=== PATIENT | female | born 1960 | race Caucasian/White ===

== ENCOUNTER → 2020-05-26 08:23 | Outpatient (CLI) | payer BC, SELFPAY ==
--- NOTE | ~2020-05-26 | XR_ITS ---
EXAMINATION: XR ankle LT 2V, XR foot LT 2V DATE: 05/26/2020 11:19 INDICATION: Left foot and ankle pain TECHNIQUE: 1. Anteroposterior and lateral view of the left ankle were obtained. 2. Dorsoplantar and lateral views of the left foot were obtained. COMPARISON: None. FINDINGS: Alignment of the foot and ankle is normal. No fracture or osteochondral lesion. Moderate osteoarthrit is at the first metatarsophalangeal joint. Mild osteoarthritis at many of the remaining profiled join ts in the mid and forefoot. Moderate-sized Achilles and plantar calcaneal spurs. There is prominent t hickening of the distal Achilles tendon with small irregular heterotopic ossicle within the tendon ce ntered approximately 2.6 cm from the calcaneal insertion as well as small heterotopic ossicle near th e tip of the medial malleolus, both likely sequela of prior chronic trauma. There are additional enth esophytes along the dorsal aspect of the navicula and cuneiforms and at the tip of the lateral malleo cecelia. Increased density anterior to the tibiotalar joint line suspicious for ankle joint effusion. The soft tissues are otherwise unremarkable. IMPRESSION: 1. Degenerative changes in the left foot including mild to moderate polyarticular osteoarthritis and prominent enthesopathic changes. 2. Small heterotopic ossicle within the thickened distal Achilles tendon suggesting tendinosis and se quela chronic trauma/tear. Reviewed, dictated and finalized at location A. IMPRESSION: 1. Degenerative changes in the left foot including mild to moderate polyarticul ar osteoarthritis and prominent enthesopathic changes. 2. Small heterotopic ossicle within the thickened distal Achilles tendon sugges ting tendinosis and sequela chronic trauma/tear.
--- NOTE | ~2020-05-26 | XR_ITS ---
XR foot RT 2V DATE: 05/26/2020 11:19 INDICATION: Multiple joint pain TECHNIQUE: AP and lateral views COMPARISON: None FINDINGS: There is prominent plantar and posterior calcaneal enthesopathy. There is moderately prominent osteoarthritis at the first metatarsophalangeal joint. There is osteoarthritic change at the tarsometatarsal joints. No fracture, dislocation, periosteal reaction or bone destruction is evident. IMPRESSION: Polyarticular osteoarthritic Prominent plantar and posterior calcaneal enthesopathy Reviewed, dictated and finalized at location A.
--- NOTE | ~2020-05-26 | XR_ITS ---
XR wrist RT 2V, XR hand RT 2V 05/26/2020 11:19 Indication: Multiple joint pain Procedure: 2 views right wrist and 2 views right hand Comparison: No prior studies for comparison. Findings: There are degenerative changes of the radiocarpal, triscaphe, first CMC, MCP and IP joints as well as the interphalangeal joints of the second-fifth digits and the MCP joints of the second, th ird and fourth digits. There is an old ulnar styloid avulsion fracture. No acute fracture or traumati c malalignment. No ostial lysis. No erosive change. 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 Reviewed, dictated and finalized at location B. 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
--- NOTE | ~2020-05-26 | XR_ITS ---
XR hip BI wo pelvis 05/26/2020 11:19 Indication: Polyarticular joint pain. Procedure: 2 views of each hip Comparison: No prior studies for comparison. Findings: Mild bilateral symmetric osteoarthritis of the hips. No fracture, subluxation or dislocatio n. No significant soft tissue abnormality. No radiopaque foreign bodies. Impression: 1: Bilateral symmetric osteoarthritis of the hips. Reviewed, dictated and finalized at location B. Impression: 1: Bilateral symmetric osteoarthritis of the hips.
--- NOTE | ~2020-05-26 | XR_ITS ---
XR ankle RT 2V DATE: 05/26/2020 11:19 INDICATION: Right ankle pain TECHNIQUE: 2 views COMPARISON: None FINDINGS: Prominent plantar and posterior calcaneal enthesopathy. No fracture or dislocation of the ankle or disruption of the ankle mortise is detected. IMPRESSION: Calcaneal enthesopathy Reviewed, dictated and finalized at location A. IMPRESSION: Calcaneal enthesopathy
--- NOTE | ~2020-05-26 | XR_ITS ---
XR elbow RT 2V 05/26/2020 11:19 Indication: Right elbow pain Procedure: 2 views right elbow Comparison: No prior studies for comparison. Findings: There is mild osteoarthritis of the right elbow. No significant joint effusion. No fracture or traumatic malalignment. Small enthesophyte at the proximal aspect of the ulna. Impression: 1: Mild osteoarthritis of the right elbow. Reviewed, dictated and finalized at location B. Impression: 1: Mild osteoarthritis of the right elbow.
--- NOTE | ~2020-05-26 | XR_ITS ---
XR shoulder RT min 2V, XR shoulder LT min 2V 05/26/2020 11:19 Indication: Polyarticular joint pain Procedure: 3 views of the shoulders Comparison: No prior studies for comparison. Findings: There is mild osteoarthritis of the acromioclavicular joints. Osteopenia. Glenohumeral join ts within normal limits in anatomic alignment. Visualized lung parenchyma unremarkable. No erosive ch anges. Impression: 1: Mild symmetric osteoarthritis of the acromioclavicular joints. Reviewed, dictated and finalized at location B. Impression: 1: Mild symmetric osteoarthritis of the acromioclavicular joints. Impression: 1: Mild symmetric osteoarthritis of the acromioclavicular joints.
--- NOTE | ~2020-05-26 | XR_ITS ---
XR knee RT 2V, XR knee LT 2V 05/26/2020 11:19 Indication: Polyarticular joint pain Procedure: 2 views of each knee Comparison: No prior studies for comparison. Findings: There is mild tricompartment osteoarthritis of the right knee. There is mild-moderate trico mpartment osteoarthritis of the left knee, most advanced in the patellofemoral joint. No fracture or traumatic malalignment. No significant joint effusion. No focal soft tissue abnormality. No foreign b odies. Impression: 1: Bilateral tricompartment osteoarthritis of the knees, left greater than right. Reviewed, dictated and finalized at location B. Impression: 1: Bilateral tricompartment osteoarthritis of the knees, left greater than stacy araujo Impression: 1: Bilateral tricompartment osteoarthritis of the knees, left greater than stacy araujo
--- NOTE | ~2020-05-26 | XR_ITS ---
XR elbow LT 2V 05/26/2020 11:19 Indication: Joint pain Procedure: 2 views left elbow Comparison: No prior studies for comparison. Findings: No fracture, subluxation or dislocation. Mild osteoarthritis of the elbow. There is entheso phyte at the at the proximal aspect of the ulna. No significant joint effusion. No focal soft tissue abnormality. Impression: 1: Mild osteoarthritis of the left elbow. Reviewed, dictated and finalized at location B. Impression: 1: Mild osteoarthritis of the left elbow.
--- NOTE | ~2020-05-26 | XR_ITS ---
XR wrist LT 2V, XR hand LT 2V 05/26/2020 11:19 Indication: Polyarticular joint pain Procedure: 2 views left wrist and 2 views left hand Comparison: No prior studies for comparison. Findings: There are mild degenerative changes of the radiocarpal and first CMC joint. There is osteoa rthritis of the first MCP and IP joints. There is mild polyarticular osteoarthritis of the interphala ngeal joints as well as the second, third and fourth MCP joints. No fracture or traumatic malalignmen t. No erosive changes. No focal soft tissue abnormality. Impression: 1: Mild polyarticular osteoarthritis of the left hand and wrist. Reviewed, dictated and finalized at location B. Impression: 1: Mild polyarticular osteoarthritis of the left hand and wrist. Impression: 1: Mild polyarticular osteoarthritis of the left hand and wrist.
== END ==
PROVIDERS: Visit Provider Internal Medicine Rheumatology
DX: M19.071 Primary osteoarthritis, right ankle and foot (principal); M19.072 Primary osteoarthritis, left ankle and foot; M77.31 Calcaneal spur, right foot; M16.0 Bilateral primary osteoarthritis of hip; M19.041 Primary osteoarthritis, right hand; M19.042 Primary osteoarthritis, left hand; M19.031 Primary osteoarthritis, right wrist; M19.032 Primary osteoarthritis, left wrist; M19.011 Primary osteoarthritis, right shoulder; M19.012 Primary osteoarthritis, left shoulder; M17.0 Bilateral primary osteoarthritis of knee; M19.021 Primary osteoarthritis, right elbow; M19.022 Primary osteoarthritis, left elbow
CPT/HCPCS: 73030; 73070; 73100; 73120; 73521; 73560; 73600; 73620

== ENCOUNTER → 2020-10-14 15:11 | Outpatient (CLI) | payer BC, SELFPAY ==
--- NOTE | ~2020-10-14 | MM_ITS ---
EXAMINATION: MM screening [facility] BI w karo HISTORY: Screening mammogram TECHNIQUE: Craniocaudal and mediolateral oblique 3-D tomosynthesis images were obtained and synthetic 2-D images were generated. CAD analysis was submitted and interpreted. COMPARISON: 10/01/2019, 09/01/2018, 09/24/2014 bilateral digital screening mammogram examinations BREAST PARENCHYMAL COMPOSITION: There are scattered areas of fibroglandular density. FINDINGS: There is no evidence of suspicious mass, calcification, or architectural distortion to sugg est malignancy in either breast. There has been no suspicious interval change. IMPRESSION: 1. No mammographic evidence of malignancy. 2. Recommend routine screening mammography in one year. BI-RADS Category 1: Negative Reviewed, dictated and finalized at location A. RD CUTTER
== END ==
PROVIDERS: Visit Provider Obstetrics & Gynecology
DX: Z12.31 Encounter for screening mammogram for malignant neoplasm of breast (principal)
CPT/HCPCS: 77063; 77067

== ENCOUNTER 2021-06-07 14:28 | Outpatient (CLI) | payer BC, SELFPAY | END 2021-06-07 14:29 | disposition home or self-care (01) | LOC: ANHAUDIO 14:29 | PROVIDERS: PCP Internal Medicine; Visit Provider Otolaryngology | DX: H93.13 Tinnitus, bilateral (principal); H90.3 Sensorineural hearing loss, bilateral | CPT/HCPCS: 92557; 92567 ==

== ENCOUNTER → 2021-10-18 14:51 | Outpatient (CLI) | payer BC, SELFPAY ==
--- NOTE | ~2021-10-18 | MM_ITS ---
EXAMINATION: MM screening [facility] BI w karo HISTORY: Screening TECHNIQUE: Craniocaudal and mediolateral oblique 3-D tomosynthesis images were obtained and synthetic 2-D images were generated. CAD analysis was submitted and interpreted. COMPARISON: Comparison to multiple prior studies sequentially, with oldest reviewed study dated 09/13. BREAST PARENCHYMAL COMPOSITION: There are scattered areas of fibroglandular density. FINDINGS: There is no evidence of suspicious mass, calcification, or architectural distortion to sugg est malignancy in either breast. There has been no suspicious interval change. IMPRESSION: 1. No mammographic evidence of malignancy. 2. Recommend routine screening mammography in one year. BI-RADS Category 1: Negative Reviewed, dictated and finalized at location A. GER SHIFT
== END ==
PROVIDERS: PCP Internal Medicine; Visit Provider Obstetrics & Gynecology
DX: Z12.31 Encounter for screening mammogram for malignant neoplasm of breast (principal)
CPT/HCPCS: 77063; 77067

== ENCOUNTER → 2021-10-21 09:35 | Outpatient (CLI) | payer BC, SELFPAY ==
--- NOTE | ~2021-10-21 | MR_ITS ---
EXAMINATION: MRA brain wo con DATE: 10/21/2021 10:23 INDICATION: Headache. TECHNIQUE: Magnetic resonance angiography (MRA) of the brain was performed without intravenous contra st with T1-weighted SPGR by the 3D [id number] technique. Maximum intensity projection 3D-reconstr uctions were obtained. COMPARISON: Brain MRI 10/21/2021 FINDINGS: The vertebral arteries are codominant. There is no significant stenosis of basilar artery or the post erior cerebral arteries. There is no significant stenosis of the intracranial internal carotid arteri es or anterior or middle cerebral arteries. Anterior communicating artery is normal. The posterior co mmunicating arteries are normal. There is no aneurysm. IMPRESSION: 1. No aneurysm or significant intracranial arterial stenosis. Reviewed, dictated and finalized at location A. O EXCAVATION OPERATOR
--- NOTE | ~2021-10-21 | MR_ITS ---
EXAMINATION: MR brain/brain stem wo con DATE: 10/21/2021 10:24 INDICATION: Headache. TECHNIQUE: Magnetic resonance imaging (MRI) of the brain and brainstem was performed without intraven ous contrast. Sequences included sagittal and axial T1-weighted FSE, axial diffusion-weighted FS EPI, axial T2*-weighted GRE, axial T2-weighted FLAIR Propeller, and axial T2-weighted Propeller. Apparent diffusion coefficient (ADC) maps were created. COMPARISON: None. FINDINGS: There is no intracranial hemorrhage, acute infarction, or abnormal intracranial mass lesion . The ventricles are normal in size. The paranasal sinuses are clear. The orbits are normal. The mast oid air cells are normal. IMPRESSION: 1. Normal brain. Reviewed, dictated and finalized at location A. STACK PHP DEVELOPER IMPRESSION: 1. Normal brain.
== END ==
PROVIDERS: PCP Internal Medicine; Visit Provider Internal Medicine Rheumatology
DX: R51.9 Headache, unspecified (principal); M54.2 Cervicalgia; M54.50 Low back pain, unspecified
CPT/HCPCS: 70544; 70551

== ENCOUNTER → 2021-11-04 13:12 | Outpatient (CLI) | payer BC, SELFPAY ==
--- NOTE | ~2021-11-04 | MR_ITS ---
EXAMINATION: MR lumbar spine wo con EXAM DATE: 11/04/2021 14:31 INDICATION: low back pain. TECHNIQUE: Multi-sequential, multiplanar MR images of the lumbar spine were obtained without contrast . Sagittal T1, T2, T2 fat saturation images. Axial T2 weighted images. There is no prior study for comparison. FINDINGS: There is moderate loss of the disc height at L2-3 and L4-5, mild at L3-4. The conus medulla ris terminates at the L1 level and has normal signal intensity and morphology. There are no suspicio us marrow signal abnormalities. Paraspinal soft tissue is unremarkable. The vertebral bodies are alig wesley in the AP dimension. Level by level evaluation: T12-L1: Mild disc bulge asymmetric to the left. Facet arthropathy: Mild. Neural foraminal stenosis: No stenosis. Central canal stenosis: Mild. L1-L2: Disc does not extend beyond the endplate margin. Facet arthropathy: Mild. Neural foraminal stenosis: No stenosis. Central canal stenosis: No stenosis. L2-L3: There is a moderate diffuse disc bulge. Facet arthropathy: Mild to moderate. Neural foraminal stenosis: Mild right. Central canal stenosis: Mild. L3-L4: There is a moderate diffuse disc bulge. Facet arthropathy: Mild to moderate. Neural foraminal stenosis: Mild to moderate right. Central canal stenosis: Mild. L4-L5: There is a moderate diffuse disc bulge. Facet arthropathy: Moderate left, mild to moderate right. Neural foraminal stenosis: Moderate left, mild to moderate right. Central canal stenosis: Mild to moderate. L5-S1: There is a mild diffuse disc bulge. Facet arthropathy: Mild. Neural foraminal stenosis: No stenosis. Central canal stenosis: No stenosis. IMPRESSION: 1. L4-5 moderate disc disease and left neural foraminal stenosis. 2. Less spondylosis other levels. Reviewed, dictated and finalized at location B. DESK TEAM LEADER
--- NOTE | ~2021-11-04 | MR_ITS ---
EXAMINATION: MR cervical spine wo con EXAM DATE: 11/04/2021 14:11 INDICATION: Neck pain. Right arm pain. TECHNIQUE: Multi-sequential, multiplanar MR images of the cervical spine were obtained without contra st. Axial T2, axial T2 MERGE sequence. Sagittal T1, T2, T2 fat saturation images also obtained. Th ere is no prior study for comparison. FINDINGS: There is moderate to severe loss of the disc height at C4-5 and 5-6 with 2 mm retrolisthes is C4 on C5 and 3 mm retrolisthesis C5 on C6. Otherwise mild to moderate loss of cervical disc height . The spinal cord signal intensity and intrinsic morphology is normal. Cervicomedullary junction is n ormal in appearance. There are no suspicious marrow signal abnormalities. Paraspinal soft tissue is u nremarkable. Level by level evaluation: C2-C3: Disc does not extend beyond the endplate margin. Uncovertebral joint arthropathy: None. Facet joint arthropathy: Mild bilateral. Neural foraminal stenosis: No stenosis. Central canal stenosis: No stenosis. C3-C4: Disc does not extend beyond the endplate margin. Uncovertebral joint arthropathy: None. Facet joint arthropathy: Mild bilateral. Neural foraminal stenosis: No stenosis. Central canal stenosis: No stenosis. C4-C5: Mild disc bulge with moderate-sized superimposed protrusion projecting 4 mm into the spinal ca nal, indenting the anterior aspect of the spinal cord and narrowing the canal to 5-6 mm in mid sagitt al AP diameter. There is no cord edema, no acute cord compression. Uncovertebral joint arthropathy: Mild. Facet joint arthropathy: Mild to moderate. Neural foraminal stenosis: No stenosis. Central canal stenosis: Mild to moderate. C5-C6: There is a mild to moderate diffuse disc bulge. Uncovertebral joint arthropathy: Moderate bilateral, right greater than left. Facet joint arthropathy: Mild to moderate bilateral. Neural foraminal stenosis: Moderate right, mild to moderate left. Central canal stenosis: Mild. C6-C7: Disc does not extend beyond the endplate margin. Uncovertebral joint arthropathy: Mild. Facet joint arthropathy: Mild. Neural foraminal stenosis: No stenosis. Central canal stenosis: No stenosis. C7-T1: Disc does not extend beyond the endplate margin. Uncovertebral joint arthropathy: Mild left. Facet joint arthropathy: Moderate right, mild left. Neural foraminal stenosis: No stenosis. Central canal stenosis: No stenosis. IMPRESSION: 1. C4-5 bulge and superimposed central protrusion indenting the spinal cord and narrowing spinal can al to 5-6 mm. No cord edema, no acute cord compression. 2. C5-6 moderate right neural foraminal stenosis. 3. Less spondylosis other levels. Reviewed, dictated and finalized at location B. PING MACHINE OPERATOR IMPRESSION: 1. C4-5 bulge and superimposed central protrusion indenting the spinal cord an d narrowing spinal canal to 5-6 mm. No cord edema, no acute cord compression. 2. C5-6 moderate right neural foraminal stenosis. 3. Less spondylosis other levels.
== END ==
PROVIDERS: PCP Internal Medicine; Visit Provider Internal Medicine Rheumatology
DX: R51.9 Headache, unspecified (principal); M51.36 Other intervertebral disc degeneration, lumbar region; M47.896 Other spondylosis, lumbar region
CPT/HCPCS: 72141; 72148

== ENCOUNTER → 2022-10-21 13:52 | Outpatient (CLI) | payer OTHER, SELFPAY ==
--- NOTE | ~2022-10-21 | MM_ITS ---
EXAMINATION: MM screening [facility] BI w karo HISTORY: Screening mammogram TECHNIQUE: Craniocaudal and mediolateral oblique 3-D tomosynthesis images were obtained and synthetic 2-D images were generated. CAD analysis was submitted and interpreted. COMPARISON: 10/18/2021, 10/14/2020, 10/01/2019 BREAST PARENCHYMAL COMPOSITION: There are scattered areas of fibroglandular density. FINDINGS: No suspicious mass, calcification, or architectural distortion are identified in either angelia ast to suggest malignancy. There has been no suspicious interval change. IMPRESSION: 1. No mammographic evidence of malignancy. 2. Recommend routine screening mammography in one year. BI-RADS Category 1: Negative Reviewed, dictated and finalized at location A. ORATE COMPLIANCE DIRECTOR
== END ==
PROVIDERS: PCP Internal Medicine; Visit Provider Internal Medicine
DX: Z12.31 Encounter for screening mammogram for malignant neoplasm of breast (principal)
CPT/HCPCS: 77063; 77067

== ENCOUNTER → 2023-05-11 08:14 | Outpatient (CLI) | payer OTHER, SELFPAY ==
--- NOTE | ~2023-05-11 | US_ITS ---
EXAMINATION: US pelvic complete w TV DATE: 05/11/2023 08:48 INDICATION: Pelvic pain and bloating TECHNIQUE: Multiple transabdominal and endovaginal sonographic images of the pelvis were obtained. COMPARISON: None. FINDINGS: The uterus is surgically absent. The right ovary is not visualized however no right adnexal abnormality is seen. The left ovary measures 5.3 x 2.5 x 3.8 cm. There are adjacent cysts of the lef t adnexa measuring up to 2.4 cm. There is normal vascular flow in the left ovary. There is no free fl uid in the pelvis. IMPRESSION: 1. Left adnexal cysts. Follow-up pelvic ultrasound in six months is recommended. Reviewed, dictated and finalized at location L. IMPRESSION: 1. Left adnexal cysts. Follow-up pelvic ultrasound in six months is recommended .
== END ==
PROVIDERS: PCP Family Medicine; Visit Provider Obstetrics & Gynecology
DX: N83.292 Other ovarian cyst, left side (principal)
CPT/HCPCS: 76830; 76856

== ENCOUNTER → 2023-10-09 08:13 | Outpatient (CLI) | payer OTHER, SELFPAY ==
--- NOTE | ~2023-10-09 | US_ITS ---
Pelvic ultrasound. Clinical History: Left ovarian cyst COMPARISON: 05/11/2023 Technique: Realtime transabdominal and transvaginal scanning of the pelvis was performed. Color flow Doppler and Doppler spectral analysis were performed. Findings: The uterus is nonvisualized. The right ovary is not visualized. No significant right ovarian or adnexal mass is seen. The left ovary measures 4.0 x 2.1 x 2.8 cm. 2 simple left ovarian cysts are present, larger measuring 2.2 cm in diameter, smaller measuring 1.5 cm in diameter. There is no evidence of free fluid in the cul de sac. Impression: 2 simple left ovarian cyst, as detailed above, similar to prior exam. Status post presumed prior hysterectomy and right oophorectomy. Reviewed, dictated and finalized at [facility]. LANCE WEB DESIGNER Impression: 2 simple left ovarian cyst, as detailed above, similar to prior exam. Status post presumed prior hysterectomy and right oophorectomy.
== END ==
PROVIDERS: PCP Family Medicine; Visit Provider Obstetrics & Gynecology
DX: N83.202 Unspecified ovarian cyst, left side (principal)
CPT/HCPCS: 76830; 76856

== ENCOUNTER → 2023-10-27 12:27 | Outpatient (CLI) | payer OTHER, SELFPAY ==
--- NOTE | ~2023-10-27 | MM_ITS ---
EXAMINATION: MM screening [facility] BI w karo HISTORY: Screening TECHNIQUE: Craniocaudal and mediolateral oblique 3-D tomosynthesis images were obtained and synthetic 2-D images were generated. CAD analysis was submitted and interpreted. COMPARISON: Comparison to multiple prior studies sequentially, with oldest reviewed study dated 09/13. BREAST PARENCHYMAL COMPOSITION: There are scattered areas of fibroglandular density. FINDINGS: There is no evidence of suspicious mass, calcification, or architectural distortion to sugg est malignancy in either breast. There has been no suspicious interval change. IMPRESSION: 1. No mammographic evidence of malignancy. 2. Recommend routine screening mammography in one year. BI-RADS Category 1: Negative Reviewed, dictated and finalized at location A. RVISOR MAINTENANCE
== END ==
PROVIDERS: PCP Family Medicine; Visit Provider Obstetrics & Gynecology
DX: Z12.31 Encounter for screening mammogram for malignant neoplasm of breast (principal)
CPT/HCPCS: 77063; 77067

== ENCOUNTER 2024-03-11 07:02 | Outpatient (CLI) | payer OTHER, SELFPAY ==
--- NOTE | ~2024-03-11 | XR_ITS ---
Right Knee Technique: AP, lateral, and sunrise views were obtained. Clinical History: Pain Findings: No fracture or dislocation is seen. Osseous alignment is anatomic. Mild degenerative spurri ng noted, most notably at the intercondylar notch and medial joint line. Soft tissues are unremarkabl e. No joint effusion is seen. Impression: Mild degenerative spurring, as above. Reviewed, dictated and finalized at location M. Impression: Mild degenerative spurring, as above.
--- NOTE | ~2024-03-11 | XR_ITS ---
Left Knee Technique: AP, lateral, and sunrise views were obtained. Clinical History: Pain Findings: No fracture or dislocation is seen. Osseous alignment is anatomic. There is mild to moderat e degenerative spurring throughout the knee. Soft tissues are unremarkable. No joint effusion is seen . Impression: [id number] degenerative spurring throughout the knee. Reviewed, dictated and finalized at location . Impression: [id number] degenerative spurring throughout the knee.
== END 2024-03-11 07:03 ==
LOC: MICIMG 07:04
PROVIDERS: PCP Nurse Practitioner Family; Visit Provider Nurse Practitioner Family
DX: S89.92XA Unspecified injury of left lower leg, initial encounter (principal); M76.892 Other specified enthesopathies of left lower limb, excluding foot; M76.891 Other specified enthesopathies of right lower limb, excluding foot
CPT/HCPCS: 73564

== ENCOUNTER 2024-09-13 09:15 | Outpatient (CLI) | payer OTHER, SELFPAY ==
--- NOTE | ~2024-09-13 | US_ITS ---
EXAMINATION: US pelvic complete w TV DATE: 09/13/2024 09:45 INDICATION: Left ovarian cyst. TECHNIQUE: Multiple transabdominal and transvaginal sonographic images of the pelvis were obtained. COMPARISON: Ultrasound 10/09/2023 FINDINGS: TRANSABDOMINAL ULTRASOUND: The uterus is absent. There is no free fluid in the pelvis. TRANSVAGINAL ULTRASOUND: The right ovary is absent. The left ovary measures 4.7 x 2.1 x 2.6 cm. There is a 2.4 cm cyst with lo w-level echoes in left ovary. There is a 1.3 cm cyst with peripheral low-level echoes in left ovary. IMPRESSION: 1. Hemorrhagic cysts in left ovary measuring up to 2.4 cm, stable from 05/11/2023, likely benign. Reviewed, dictated and finalized at location B. IMPRESSION: 1. Hemorrhagic cysts in left ovary measuring up to 2.4 cm, stable from 3, likely benign.
== END 2024-09-13 09:16 | disposition home or self-care (01) ==
LOC: MICIMG 09:18
PROVIDERS: PCP Obstetrics & Gynecology; Visit Provider Obstetrics & Gynecology
DX: N83.202 Unspecified ovarian cyst, left side (principal)
CPT/HCPCS: 76830; 76856

== ENCOUNTER 2024-11-01 12:07 | Outpatient (CLI) | payer OTHER, SELFPAY ==
--- NOTE | ~2024-11-01 | MM_ITS ---
EXAMINATION: MM screening [facility] BI w karo HISTORY: Screening TECHNIQUE: Craniocaudal and mediolateral oblique 3-D tomosynthesis images were obtained and synthetic 2-D images were generated. CAD analysis was submitted and interpreted. COMPARISON: Comparison to multiple prior studies sequentially, with oldest reviewed study dated 08/14. BREAST PARENCHYMAL COMPOSITION: Not Dense: The breasts are almost entirely fatty. FINDINGS: There is no evidence of suspicious mass, calcification, or architectural distortion to sugg est malignancy in either breast. There has been no suspicious interval change. IMPRESSION: 1. No mammographic evidence of malignancy. 2. Recommend routine screening mammography in one year. BI-RADS Category 1: Negative Reviewed, dictated and finalized at location B. E MACHINIST
== END 2024-11-01 12:08 | disposition home or self-care (01) ==
LOC: MICIMG 12:07
PROVIDERS: PCP Nurse Practitioner Family; Visit Provider Obstetrics & Gynecology
DX: Z12.31 Encounter for screening mammogram for malignant neoplasm of breast (principal)
CPT/HCPCS: 77063; 77067